=== PATIENT | male | born 1930 | race Caucasian/White ===

== ENCOUNTER → 2016-06-19 | Outpatient (CLI) | payer MEDICARE ==
[~2016-06-19] MED LIST: ACID REDUCER20 MG PO; BENICAR PO; FAMOTIDINE10 MG PO; FLOMAX0.4 M1 PO; HCTZ PO; INDOMETHACIN25 MG PO; INDOMETHACIN50 MG PO; LASIX PO; LISINOPRIL PO; LORTAB 7.5-3251 EACH PO; MULTI VITAMIN1 EACH PO; SAW PALMETTO160 M1 PO; SAW PALMETTO450 MG PO; VICODIN ES 7.51 EAC1 PO; ZESTORETIC 20-1 EAC2 PO
--- NOTE | ~2016-06-19 | US5 ---
[facility] A Service of [facility] RADIOLOGY TEXT RESULTS PATIENT: EDIS AC LOCATION: [facility] : 32 UNIT #: [id number] AGE: [address]: HOLLEY CORTES APRN SEX: M ORDER DR: [id number] [place] [id number] O MR#: [id number] Acc #: [id number] NAME: EDIS CA : 1930 SEX: M STUDY DATE/TIME: 06/19/2016 8:54 UNIT: [facility] ROOM: STUDY DESCRIPTION: US Abdominal Complete Attending Physician: Holley Cortes Aprn Referring Physician: Holley Cortes Aprn Ordering Physician: Holley Cortes Aprn Primary Care Physician: Tigre Vale M.D. MEDICAL IMAGING REPORT This report is preliminary unless electronic signature is present. EXAM Abdominal ultrasound INDICATION Right upper quadrant abdominal pain for the past 3 weeks, with right-sided abdominal swelling for the past week. PROCEDURE Dickerson-scale and Doppler imaging of the abdomen. COMPARISON None. FINDINGS Pancreas obscured by bowel gas and not well seen. Liver measures 16.2 cm. No liver mass on submitted images. Submitted images abdominal aorta and inferior vena cava unremarkable. Common duct is obscured by bowel gas and not well seen. Abnormal appearance of the gallbladder. There are a few stones. There is what appears to be significant gallbladder wall thickening, measuring up to 2.1 cm. The right kidney measures 11.3 cm. No definite hydronephrosis. Spleen measures 11.5 cm. Left kidney measures 12 cm with no hydronephrosis. IMPRESSION 1. Difficult study secondary to body habitus and bowel gas. The pancreas and common duct are not well seen. 2. Abnormal appearance of the gallbladder with what appears to be gallbladder wall thickening with several stones. Cholecystitis is not excluded on this study. Correlate with patient's symptoms. Given the unusual appearance of the gallbladder by ultrasound, evaluation with CT or MRI may be helpful. 3. Findings discussed with Supriya Cortes at the time of this dictation. [facility] A Service of [facility] RADIOLOGY TEXT RESULTS PATIENT: EDIS CA LOCATION: [facility] : 32 UNIT #: [id number] AGE: [address]: HOLLEY CORTES APRN SEX: M ORDER DR: Dictated by... Fritz Jackson M.D. THIS IS AN ELECTRONICALLY VERIFIED REPORT Fritz Jackson M.D. at 06/20/2016 7:08 AM MARCELINO/mary TD: 06/19/2016 13:35 JOB #: [id number] MEDICAL IMAGING REPORT
== END | disposition home or self-care (01) ==
LOC: SGUS 08:05
DX: R10.11 Right upper quadrant pain (principal); R14.0 Abdominal distension (gaseous); R94.8 Abnormal results of function studies of other organs and systems
CPT/HCPCS: 76700

== ENCOUNTER 2016-06-21 13:39 | Inpatient (IN) | payer OTHER ==
--- NOTE | ~2016-06-21 | OR ---
Unit #: [id number] #: [id number] Patient: EDIS [place] [id number] [address] [place], [place] [address] [id number] I MR#: [id number] NAME: EDIS CA ROOM: 242 Date of Procedure: 06/22/2016 Admission Date: 06/21/2016 Surgeon: Arpan Andrews M.D. : 1930 Attending Physician: Richi Cruz M.D. Primary Care Physician: Tigre Vale M.D. OPERATIVE REPORT PRIMARY CARE PHYSICIAN Tigre Vale M.D. PREOPERATIVE DIAGNOSES The patient has presented with cholecystitis, cholelithiasis, and choledocholithiasis with dilated common bile duct. PROCEDURES PERFORMED Endoscopic retrograde cholangiopancreatography and sphincterotomy, endoscopic retrograde cholangiopancreatography and stone extraction, and endoscopic retrograde cholangiopancreatography and biliary and pancreatic stent placements. POSTOPERATIVE DIAGNOSES Multiple filling defects in the distal common bile duct along with stones and debris. After a sphincterotomy, the duct was cleaned off all the stones and debris with a 10 to 12 mm retrieval balloon. The cystic duct could not be opacified on the occlusion cholangiogram. In addition, the patient had a periampullary diverticulum. The stents were placed in both the common bile duct as well as pancreatic duct to ensure continuity of drainage and prevent postprocedure pancreatitis. RECOMMENDATIONS The patient will undergo laparoscopic cholecystectomy tomorrow. He will require an elective removal of biliary stent 6 to 8 weeks time. SEDATION USED MAC. DESCRIPTION OF PROCEDURE Following detailed explanation of potential risks and complications of an ERCP, namely perforation, bleeding, and complications related to sedation, the patient was brought to GI lab and laid in the left semiprone position. A preliminary upper GI endoscopy was performed, which was normal. Lateral-viewing duodenoscope was advanced through the oral cavity into the esophagus and advanced into the stomach. Pylorus was intubated in the usual fashion. Scope was advanced in deep descending duodenum. Upon shortening the scope, major papillary and ampullary area was visualized en face. The patient was noted to have a periampullary diverticulum. Cannulation of the common bile duct led to cannulation of the pancreatic duct on 2 occasions and the guidewire was anchored and guidewire was left in the pancreatic duct. Repeated using the double-wire technique, the Unit #: [id number] #: [id number] Patient: EDIS CA common bile duct cannulation was attempted without success. We then placed a 5-Tongan x 5-cm pancreatic stent and using a needle knife sphincterotomy, the common bile duct was accessed eventually. The guide was then advanced in the common bile duct and cholangiogram was obtained. The patient was noted to have dilated common bile duct about 9 mm. In addition, there were filling defects in the distal CBD. There were also some scarring in this area. An adequate sphincterotomy was then performed. Some debris and stones were delivered by sphincterotomy. The duct was then cleared of any residual stones and debris by using 9 to 12 mm retrieval balloon at 12 mm settings. Multiple passages were made through the common bile duct at least 3 to 4 times and the duct was cleaned of any residual stones. A 10-Tongan x 7 cm biliary stent was then deployed. Incidentally, the cystic duct could not be opacified on an occlusion cholangiogram. The scope was then withdrawn. The patient returned to the recovery area. The patient tolerated the procedure without any postprocedure complications. About now or later after the procedure, the patient was re-examined and was totally asymptomatic and complaining of no upper abdominal pain. Dictated by... Laura Morris/maria ines TD: 06/23/2016 03:05 JOB #: [id number] OPERATIVE REPORT X Arpan Andrews MD X PROCEDURE OPERATIVE NOTE
--- NOTE | ~2016-06-21 | CR84 ---
[facility] A Service of [facility] RADIOLOGY TEXT RESULTS PATIENT: EDIS CA LOCATION: [facility] : 32 UNIT #: [id number] AGE: [address]: Richi Cruz MD SEX: M ORDER DR: [id number] [place] [id number] [facility]. [place], [place] [address] [id number] I MR#: [id number] Acc #: [id number] NAME: EDIS CA : 1930 SEX: M STUDY DATE/TIME: 06/22/2016 12:58 UNIT: [facility] ROOM: 242 STUDY DESCRIPTION: CR ERCP Biliary and Pancr SI Attending Physician: Richi Cruz M.D. Ordering Physician: Arpan Andrews M.D. Primary Care Physician: Tigre Vale M.D. MEDICAL IMAGING REPORT This report is preliminary unless electronic signature is present EXAM ERCP with fluoroscopy. Date: 06/22/2016 at 12:58 HISTORY Possible common bile duct stones. COMPARISON Complete abdominal ultrasound 06/19/2016. CT abdomen with contrast 06/21/2016. FINDINGS 10 spot fluoroscopic images were obtained during ERCP procedure performed by Dr. Andrews. Fluoroscopy time 3.18 minutes was documented. Contrast was injected into the common bile duct. A filling defect is seen within the distal CBD at or above the level of the ampulla consistent with retained stone, as was suspected on the recent 06/21/2016 CT. Sphincterotomy was performed. Balloon sweep was performed for stone extraction. Mild upstream common bile duct dilation is noted. Final procedure image demonstrates CBD stent and presumed pancreatic stent in satisfactory position. No imaging of opacified pancreatic duct. Please correlate with real-time procedure findings. Dictated by... Wanda Callahan M.D. THIS IS AN ELECTRONICALLY VERIFIED REPORT Wanda Callahan M.D. at 06/24/2016 7:02 PM [facility] A Service of [facility] RADIOLOGY TEXT RESULTS PATIENT: EDIS CA LOCATION: [facility] : 32 UNIT #: [id number] AGE: [address]: Richi Cruz MD SEX: M ORDER DR: ODESSA/jerilyn TD: 06/22/2016 23:45 JOB #: [id number] MEDICAL IMAGING REPORT COPY
--- NOTE | ~2016-06-21 | CO ---
Unit #: [id number] #: [id number] Patient: EDIS MARIEE [id number] [address] [address] [id number] I MR#: [id number] NAME: EDIS MARIEE ROOM: 242 Age: 86 Sex: M Admission Date: 06/21/2016 : 1930 Attending Physician: Richi Cruz M.D. Primary Care Physician: Tigre Vale M.D. Consultation Date: 06/21/2016 CONSULTATION REPORT REASON FOR CONSULTATION 1. Right upper quadrant pain. 2. Cholelithiasis. 3. Cholecystitis. CONSULTING PHYSICIAN [facility] physicians. HISTORY OF PRESENT ILLNESS Thank you very much for asking us to see Mr. Mariee. He is an 86-year-old white male whose past medical history is remarkable for hypertension. He has had a four to five week history of right upper quadrant pain. It is a deep pressure sensation that radiates to the back. It is intermittent. It is worse when he takes a deep breath. He was sent for an ultrasound of the gallbladder as an outpatient on June 11, 2016 and at that time, was found to have some mild gallbladder wall thickening and multiple gallstones. A CT scan was recommended for further evaluation. He had this today as an outpatient. He was found to have cholelithiasis, some gallbladder wall thickening, a hydrops of the gallbladder, as well as, a possible distal common bile duct stone. There were also a few air bubbles present within the gallbladder suspicious for emphysematous cholecystitis. He is not complaining of any significant abdominal pain or change in his examination. He states his urine may be slightly darker but nothing very obvious. He denies any GI bleeding. No or pulmonary symptoms. His weight has been stable and appetite overall has been good. He came to the emergency room per the radiologist at recommendation. He presents at this time for further evaluation and treatment. ALLERGIES Tetracyclines. MEDICATIONS 1. Lisinopril. 2. Hydrochlorothiazide. 3. Indomethacin as needed. 4. Saw palmetto. 5. Lasix. 6. Benicar. PAST SURGICAL HISTORY Arthroscopic surgery of his left knee. PAST MEDICAL HISTORY Unit #: [id number] #: [id number] Patient: EDIS MARIEE Hypertension. SOCIAL HISTORY No tobacco or alcohol use. REVIEW OF SYSTEMS Negative except for above. IMMUNIZATION Immunization status unknown. FAMILY HISTORY Noncontributory. PHYSICAL EXAMINATION GENERAL: Well-developed, well-nourished white male in no apparent distress. Awake, alert, and oriented x3. VITAL SIGNS: Temperature 97.9, pulse 102, respirations 18, blood pressure 144/67. NECK: Supple. No thyromegaly or adenopathy. HEENT: Sclerae nonicteric. Extraocular movements are intact. BACK: No CVA or spinous tenderness. ABDOMEN: Flat, soft. Lexd-zw-zhrrokqc tenderness in the right upper quadrant but no rebound, peritoneal signs, or masses. DIAGNOSTIC STUDIES LABORATORY: Laboratory studies reveal the patient to have a PT, PTT that is normal. CMP shows a glucose of 122, a total bilirubin of 2.5, direct bilirubin 1.2, indirect 1.3, AST 99, ALT 126, alkaline phosphatase 484. Amylase 23, lipase 20. His white count is 17.1 with hemoglobin 13.5, MCV 83.7, platelet count 312,000. Urinalysis shows negative nitrite, negative leukocyte esterase. IMPRESSION An 86-year-old white male with cholelithiasis, most likely cholecystitis and with very possible common bile duct stone. We have explained to the patient as well as to his son and daughter the above findings. We recommend IV fluids, IV antibiotics, and evaluation by GI medicine for possible endoscopic retrograde cholangiopancreatography. After his common bile duct is cleared, then he would need laparoscopic cholecystectomy. All the imaging and laboratory studies have been fully explained to the patient and the family in detail. They understand and request to proceed with the current treatment plan. All this also discussed with Dr. Andrews of GI medicine per telephone. He will see the patient today. Dictated by... Laura Malik TD: 06/22/2016 14:25 JOB #: [id number] CC: [facility] Unit #: [id number] #: [id number] Patient: EDIS MARIEE CONSULTATION REPORT X Richi Cruz MD X CONSULTATION REPORT
--- NOTE | ~2016-06-21 | CO ---
Unit #: [id number] #: [id number] Patient: EDIS [place] [id number] [facility]. [address] [place], [place] [address] [id number] I MR#: [id number] NAME: EDIS CA ROOM: 242 Age: 86 Sex: M Admission Date: 06/21/2016 : 1930 Attending Physician: Richi Cruz M.D. Primary Care Physician: Tigre Vale M.D. Consultation Date: 06/21/2016 CONSULTATION REPORT ATTENDING PHYSICIAN Katelynn Mandujano APRN. REASON FOR CONSULTATION Possible choledocholithiasis in a patient with acute cholecystitis. HISTORY OF PRESENT ILLNESS Mr. Genao is a very pleasant 86-year-old white gentleman. The patient has been totally asymptomatic until about a month ago. About 3 to 4 weeks ago, he noticed pain in the right upper quadrant of the abdomen. This was insidious in onset and more or less continuous. Pain would increase on postural changes and was felt deep inside below the right rib cage. There was no radiation of the pain to the scapular area and nor to the right shoulder. The patient denies any history of fever, chills, or rigors. His appetite was initially poor, but it subsequently picked up and he is having normal appetite now. He has no nausea or vomiting and no chills or rigors. PAST MEDICAL HISTORY The patient has had no significant past medical history and has had no prior abdominal surgeries. He says recently he has had significant edema of the lower extremities and has been started on hydrochlorothiazide and lisinopril combination by Dr. Vale as an outpatient. MEDICATIONS Include hydrochlorothiazide and lisinopril. PAST SURGICAL HISTORY He has no previous surgeries. ALLERGIES He has no known drug allergies. SOCIAL HISTORY Does not smoke or drink alcohol. Lives at home with his . FAMILY HISTORY None of colon, pancreatic cancer, or liver disease. REVIEW OF SYSTEMS Detailed review of organ systems does not reveal any recent significant weight loss. No history of fever, chills, or rigors. No history of headache, seizures, chest pain, or syncope. No history of cough, Unit #: [id number] #: [id number] Patient: EDIS CA expectoration, or hemoptysis. No history of dysuria, hematuria, or pyuria. No history of focal seizures or extremity weakness. No history of skin rash, aphthous ulcer in the mouth, or reactive arthritis. Rest of the review of organ system is unremarkable. PHYSICAL EXAMINATION GENERAL: He is alert and oriented, and appears comfortable. VITAL SIGNS: Stable with a temperature of 98.5, pulse is 73 per minute and regular, respiratory rate is 17, blood pressure 111/56. He weighs 203 pounds, and appears well nourished. HEENT: He has no pallor, icterus, lymphadenopathy, or peripheral edema. CARDIOVASCULAR: Normal heart sounds. No murmurs on auscultation. LUNGS: Reveal normal breath sounds. Good air entry. ABDOMEN: Soft. There being localized tenderness of the right upper quadrant. Avila sign is positive. No rigidity, rebound, or guarding is felt. Liver and spleen are not palpable. Bowel sounds normal and the patient's hernia sites also. DIAGNOSTIC STUDIES LABORATORY RESULTS: Shows leukocytosis with white count of 17,000 with left shift. Serum chemistry shows mildly elevated bilirubin of 2.5, albumin is 2.9. AST and ALT are 99 and 126 respectively and alkaline phosphatase is 484. Amylase and lipase are normal. IMAGING STUDIES: The patient's CT scan of the abdomen shows a hydrops of the gallbladder along with debris and stones in the gallbladder. In addition, there was some air indicating possible infection with air-forming bacteria. Lastly, the patient seems to have distal common bile duct stone or debris. CLINICAL IMPRESSION The patient with cholelithiasis, cholecystitis, and choledocholithiasis. MANAGEMENT PLAN Includes clearance of the common bile duct followed by laparoscopic cholecystectomy. An endoscopic retrograde cholangiopancreatography is being scheduled for tomorrow. The pros and cons of the procedure, and potential risks and complications including possibility of perforation, bleeding, and complications related to sedation, as well as pancreatitis were discussed with the patient, his and his son, who were at the bedside. They seemed reassured. Thank you for asking me to see this pleasant gentleman. I appreciate the consult. Dictated byLaura Daley/maria ines TD: 06/22/2016 13:57 JOB #: [id number] Unit #: [id number] #: [id number] Patient: EDIS CA CONSULTATION REPORT X Arpan Andrews MD CONSULTATION REPORT
--- NOTE | ~2016-06-21 | DS ---
Unit #: [id number] #: [id number] Patient: EDIS [place] [id number] [address] [address] [id number] I MR#: [id number] NAME: EDIS CA ROOM: 242 Age: 86 Sex: M Admission Date: 06/21/2016 : 1930 Discharge Date: 06/27/2016 Attending Physician: Richi Cruz M.D. Primary Care Physician: Tigre Vale M.D. DISCHARGE SUMMARY DISCHARGE DIAGNOSES 1. Acute cholecystitis with abdominal adhesions. 2. Postoperative urinary retention. 3. Atherosclerotic cardiovascular disease, mild. OPERATIVE PROCEDURES 1. ERCP. 2. Open cholecystectomy with lysis of adhesions, drainage of right upper quadrant. HISTORY OF PRESENT ILLNESS AND HOSPITAL COURSE An 86-year-old white male with no previous abdominal operations who had mid epigastric/right upper quadrant abdominal pain, CT scan showing stones, hydrops, wall thickening of the gallbladder with a few gas bubbles, possible common bile duct stone. Patient was admitted, placed on antibiotics. ERCP was performed per Dr. Andrews. The stent was placed. ERCP did not show any large stones in the duct. The patient was taken to surgery. Open cholecystectomy was performed. Dense adhesiolysis was also performed. Postoperative course was complicated by a mild ileus plus problems related to some urinary retention and decreased urinary output. The patient's IV fluids were increased. Urology was consulted. Tentatively urinary flow came back to clinical normal limits with serum creatinine rising to 1.5. Patient clinically is stable. His drain has been removed. He will be (1) discharged if okay with Urology. FOLLOWUP We will see the patient back for followup in the clinic in 7 to 10 days. Dictated by... Laura Suarez/shruti TD: 06/27/2016 23:15 JOB #: [id number] Unit #: [id number] #: [id number] Patient: EDIS CA DISCHARGE SUMMARY X Caesar Pak MD X DISCHARGE SUMMARY
--- NOTE | ~2016-06-21 | CO ---
Unit #: [id number] #: [id number] Patient: EDIS CA [id number] [address] [place], [place] [address] [id number] I MR#: [id number] NAME: EDIS CA ROOM: 242 Age: 86 Sex: M Admission Date: 06/21/2016 : 1930 Attending Physician: Richi Cruz M.D. Primary Care Physician: Tigre Vale M.D. Consultation Date: 06/27/2016 CONSULTATION REPORT REASON FOR CONSULTATION Elevated postoperative renal indices and dysuria. HISTORY OF PRESENT ILLNESS This 86-year-old man is seen 4 days post cholecystectomy and in a delayed fashion as consult was noted to be called over one day prior. He has sought ready for discharge from a surgical viewpoint, but has had voiding difficulties described as dysuria, but in fact he has constant urinary incontinence with small frequent urinations. He denies bladder pain, but has a marked increase in his creatinine to 3.3. 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 He has followed with Dr. Obando for this as well as for a history of elevated PSA, although his PSA was stable and somewhat improved most recently at 7.3. Of note is that while Doshi catheter has not been replaced, a bladder scan showed a residual of over 900 mL after the patient had voided only 100 mL. PAST MEDICAL HISTORY Acute cholecystitis in recovery, hypertension, BPH. PAST SURGICAL HISTORY Open cholecystectomy, left knee arthroscopy. MEDICATIONS ON ADMISSION Lisinopril, hydrochlorothiazide, indomethacin, saw palmetto, Lasix, Benicar. He has had Levaquin, morphine, Roxicodone, Protonix, and Phenergan during his hospitalization. ALLERGIES Tetracycline. FAMILY HISTORY Noncontributory. SOCIAL HISTORY Nonsmoker. REVIEW OF SYSTEMS Pertinent for the above and he ordinarily denies significant voiding complaints and certainly has no incontinence. PHYSICAL EXAMINATION Unit #: [id number] #: [id number] Patient: EDIS CA GENERAL: On examination, he is awake, alert, comfortable. Incisions dry. ABDOMEN: Soft. Bladder palpably distended, although surprisingly not tender. GENITALIA: Normal penis and testicles. I placed a Doshi catheter and his residual was 1650 mL of clear urine. DIAGNOSTIC STUDIES LABORATORY RESULTS: BUN 34, creatinine 3.3. At the time of this dictation, his creatinine overnight has decreased to 0.4 and his potassium is stable at 3.8. IMAGING STUDIES: Note, prior CT scan, bilateral renal atrophy. No hydronephrosis, stones, or upper tract obstruction. IMPRESSION 1. Postoperative urinary retention multifactorial including chronic benign prostatic hypertrophy and should resolve with appropriate bladder rest and therapy. 2. History of untoward effects from prostate medication, but he has tolerated a single dose of tamsulosin overnight. 3. History of elevated prostate-specific antigen for which he follows with Dr. Obando. PLAN We will discharge home with Doshi catheter over the weekend and on tamsulosin recommending a single dose antibiotic with catheter removal. We will see if he can see Dr. Obando on Saturday or Saturday, but if not practical, he will see me on Saturday. Thank you Dr. Stoddard for the consultation. Dictated by... Edis Herr M.D. GEOFF/maria ines TD: 06/29/2016 00:01 JOB #: [id number] CONSULTATION REPORT X Edis Herr MD X CONSULTATION REPORT
--- NOTE | ~2016-06-21 | DS ---
Unit #: [id number] #: [id number] Patient: EDIS MARIEE [id number] [address] [address] [id number] I MR#: [id number] NAME: EDIS MARIEE ROOM: 242 Age: 86 Sex: M Admission Date: 06/21/2016 : 1930 Discharge Date: 06/28/2016 Attending Physician: Richi Cruz M.D. Primary Care Physician: Tigre Vale M.D. DISCHARGE SUMMARY ADDENDUM Mr. Mariee was seen by urology. He was noted to have his serum creatinine elevated from 1.5 to 3.3. Doshi catheter was inserted, and 2,000 mL bladder residual was noted. The patient was then cleared by urology to go home with a Doshi bag and also to have a prescription for Flomax. The patient will be seen by urology in the office and also by us to remove tayo. Dictated by... Laura Suarez/cinthya TD: 06/28/2016 07:58 JOB #: [id number] DISCHARGE SUMMARY X Caesar Pak MD X DISCHARGE SUMMARY
--- NOTE | ~2016-06-21 | OR ---
Unit #: [id number] #: [id number] Patient: EDIS CA [id number] [address] [place], [place] [address] [id number] Lorena MR#: [id number] NAME: EDIS CA ROOM: 242 Date of Procedure: 06/23/2016 Admission Date: 06/21/2016 Surgeon: Darius Sandoval M.D. : 1930 Attending Physician: Richi Cruz M.D. Primary Care Physician: Tigre Vale M.D. OPERATIVE REPORT PREOPERATIVE DIAGNOSIS Acute cholecystitis. POSTOPERATIVE DIAGNOSES Gangrenous cholecystitis with dense intraperitoneal adhesions. PROCEDURE PERFORMED Laparoscopic converted to open cholecystectomy with massive adhesiolysis. ANESTHESIA General endotracheal. COMPLICATIONS None. ESTIMATED BLOOD LOSS 400 mL. DESCRIPTION OF PROCEDURE After the patient was prepped and draped in usual fashion, 1 cm infraumbilical incision was made. A Veress needle was passed. The peritoneal cavity was insufflated in usual fashion. A 5-mm port was placed. Under direct vision, an upper midline 11-mm port and two right upper quadrant 5-mm ports were placed. The gallbladder could not be visualized. There was densely adhesed omentum to the edge of the right lobe of the liver. I was able to bluntly dissect enough to see a small portion of the dome of the gallbladder. The adhesions would not stripped down bluntly. They were quite densely adhesed. I could not grasp the gallbladder. It was tensely distended. A needle was placed through one of the right upper quadrant trocar site. About 5 mL of what appeared to be purulent bile was aspirated from the lumen. I cannot retrieve any further bile. I was able to grasp the dome, but with multiple attempts, I was not able to get the omentum to separate from the gallbladder itself from the edge of lobe of the liver. At one point, I did make an enterotomy in the gallbladder with the blunt dissection, some purulent bile was spilled. At this point, I decided I cannot complete this operation laparoscopically. The ports were removed, and after instruments were brought forth and accounted, a right subcostal incision was made incorporating the upper midline trocar site as well as the medial 5 mm trocar site as well. The incision was extended laterally and inferiorly to the lateral 5 mm trocar site. The peritoneal cavity was opened to approximate the skin incision with electrocautery. Retractors were Unit #: [id number] #: [id number] Patient: EDIS CA. There were very dense adhesions. Using electrocautery, I removed the adhesions from the right lobe of the liver. An adhesions of the omentum which was very hard and fibrotic were slowly removed from the gallbladder itself, some of this was able to be done bluntly, some of it with electrocautery. The area where the enterotomy was made laparoscopically. There was essentially necrotic gallbladder tissue protruding through this, which appeared to be wet gangrene. Dissection was sequentially taken down to the infundibulum removing all of the omentum. This was meticulous in slow dissection. With this, the peritoneum was incised at the edge of the dome of the gallbladder in the right lobe of the liver. At the edge, the gallbladder was taken off the bed with some electrocautery dissection, but mostly with blunt dissection. It should be noted that as the infundibulum was approached, the antrum was adhesed up to the gallbladder wall. These had to be with electrocautery. There was deserosalization, which occurred which was about 7 to 8 mm. This was closed with 2 interrupted sutures of 2-0 silk stick ties. The lower infundibulum tissue was dissected with right angles. There was some tissue anterior to where I find the duct was. It did palpate to be a little bit tubular about 2 to 3 mm. I did clip this doubly proximally, singly distally, and divided it, but there was no tubular structure within this after was divided. It was believed there was just fibrotic tissue coming from posterior. The cystic artery was dissected. This was clipped doubly proximally, singly distally, and divided. I was able to dissect down to the cystic duct; however, it was encased in fairly fibrotic tissue. The area in question was too large for the clip cook fish eggs. With this, a TA 30 was brought forth. The cystic duct was stapled and then divided sharply distally. The cystic duct was identified within this structure that was about 4 to 5 mm in diameter. The specimen was delivered and sent to Pathology. There had been quite a bit of oozing from the bed during the procedure by the time of the gallbladder was out. This had pretty much stopped from a lap pads, which were placed to hold pressure. The peritoneal cavity was irrigated with 2 L of saline and suctioned free. A drain was placed through a separate stab incision down the bed of the gallbladder and into the right gutter and secured to the skin with a silk ligature. Posterior fascia was closed with running 0 Vicryl. Anterior fascia was closed with a running #1 looped 0 PDS. Skin closed with clips at all sites. Dressings applied. The patient was taken to the recovery room in good condition. Dictated by... Laura Jay/maria ines TD: 06/23/2016 21:49 JOB #: [id number] OPERATIVE REPORT X Darius Sandoval X PROCEDURE OPERATIVE NOTE
--- NOTE | ~2016-06-21 | EKG ---
PATIENT: EDIS CA UNIT #: [id number] Ventricular Rate: 95 BPM Atrial Rate: 69 BPM QRS Duration: 130 ms Q-T Interval: 378 ms QTC Calculation(Bezet): 475 ms Calculated R Creswell: -77 degrees Calculated T Creswell: 44 degrees Diagnosis Line: Cannot rule out Atrial fibrillation Diagnosis Line: Right bundle branch block Diagnosis Line: Left anterior fascicular block Diagnosis Line: Bifascicular block Diagnosis Line: Abnormal ECG Diagnosis Line: No previous ECGs available Diagnosis Line: Confirmed by MANJULA HERNANDEZ MD ([id number]) on 06/21/2016 Diagnosis Line: 6:27:44 PM INTERPRETING MD: DAVID WALTERS
[2016-06-21 13:21] LABS: BASOPHIL# 0.1 X10e3 (0-0.3); BASOPHIL% 0.9 % (0-2.5); DIFF IND YES; EOSINOPHIL% 0.2 % (0.0-7.0); HEMATOCRIT 40.2 % (38.0-50.0); HEMOGLOBIN 13.5 gm/dL (13.0-16.0); LYMPHOCYTE# 1.8 X10e3 (1.0-3.5); LYMPHOCYTE% 10.4 % (17.0-45.0); MEAN CELL VOLUME 83.7 FL (83-96); MEAN CORPUSCULAR HGB CONC 33.4 g/dL (30-36); MEAN PLATELET VOLUME 10.5 FL (6.5-11.5); MONOCYTE# 1.8 X10e3 (0-1.0); MONOCYTE% 10.6 % (3.0-12.0); NEUTROPHIL# 13.3 X10e3 (1.5-7.1); NEUTROPHIL% 77.9 % (40-75); PLATELET COUNT 312 X10e3 (140-420); RED BLOOD COUNT 4.81 X10e (3.90-5.60); RED CELL DISTRIBUTION WIDTH 14.6 % (11.0-15.5); WHITE BLOOD COUNT 17.1 X10e3 (4.0-10.5)
[2016-06-21 13:32] LABS: PARTIAL THROMBOPLASTIN TIME 27.3 SECONDS (23.5-31.3); PROTHROMBIN TIME (PATIENT) 10.6 SECONDS (9.6-11.5)
[2016-06-21 13:34] LABS: PLATELET ESTIMATE NORMAL (NORMAL)
[~2016-06-21 13:39] MED LIST changes: -ACID REDUCER20 MG PO; -FAMOTIDINE10 MG PO; -FLOMAX0.4 M1 PO; -INDOMETHACIN25 MG PO; -INDOMETHACIN50 MG PO; -LISINOPRIL PO; -LORTAB 7.5-3251 EACH PO; -MULTI VITAMIN1 EACH PO; -SAW PALMETTO160 M1 PO; -SAW PALMETTO450 MG PO; -VICODIN ES 7.51 EAC1 PO; -ZESTORETIC 20-1 EAC2 PO
[2016-06-21 13:51] LABS: ALBUMIN SERUM 2.9 g/dL (3.5-5.0); ALKALINE PHOSPHATASE 484 U/L (32-92); ALT (SGPT) 126 U/L (10-40); AMYLASE 23 U/L (0-46); AST (SGOT) 99 U/L (10-42); BILIRUBIN, DIRECT 1.2 mg/dL (0.0-0.2); BILIRUBIN,INDIRECT 1.3 mg/dL (0.0-0.9); BILIRUBIN,TOTAL 2.5 mg/dL (0.2-2.0); BLOOD UREA NITROGEN 19 mg/dL (9-23); BUN/CREATININE RATIO 17.27; CALCIUM SERUM 9.6 mg/dL (8.4-10.2); CARBON DIOXIDE 27 mmol/L (22-31); CHLORIDE 98 mmol/L (100-111); CREATININE SERUM 1.1 mg/dL (0.6-1.4); GLOM FILT RATE Estimated ABOVE60 mL/min (>60); GLUCOSE FASTING 122 mg/dL (70-110); LIPASE 20 U/L (22-51); POTASSIUM 3.9 mmol/L (3.5-5.1); PROTEIN TOTAL SERUM 7.1 g/dL (6.0-8.3); SODIUM 137 mmol/L (135-145)
[2016-06-21 14:34] LABS: URINE SOURCE CLEAN CATCH
[2016-06-21 14:40] LABS: URINE APPEARANCE CLEAR; URINE BLOOD NEG (NEG); URINE COLOR DK YELLOW; URINE GLUCOSE NEG (NEG); URINE KETONE NEG (NEG); URINE LEUKOCYTE ESTERASE NEG (NEG); URINE NITRATE NEG (NEG); URINE PH 5.5 (5-8); URINE PROTEIN NEG (NEG); URINE SPECIFIC GRAVITY 1.066 (1.003-1.035)
[2016-06-21 14:51] LABS: URINE BILIRUBIN NEG (NEG)
[2016-06-21 14:54] LABS: CULTURE INDICATED? NO
[2016-06-21] MEDS ORDERED: SAW PALMETTO160 M1 PO (18:15)
[2016-06-21] MEDS ORDERED: LISINOPRIL PO (18:15)
[2016-06-21] MEDS ORDERED: MULTI VITAMIN1 EACH PO (18:15)
[2016-06-21] MEDS ORDERED: FAMOTIDINE10 MG PO (18:15)
[2016-06-21] MEDS ORDERED: INDOMETHACIN25 MG PO (18:16)
[2016-06-22 05:17] LABS: BASOPHIL# 0.1 X10e3 (0-0.3); BASOPHIL% 0.5 % (0-2.5); EOSINOPHIL# 0.1 X10e3 (0-0.7); EOSINOPHIL% 0.6 % (0.0-7.0); HEMATOCRIT 35.2 % (38.0-50.0); HEMOGLOBIN 11.6 gm/dL (13.0-16.0); LYMPHOCYTE# 1.4 X10e3 (1.0-3.5); MEAN CELL VOLUME 83.7 FL (83-96); MEAN CORPUSCULAR HEMOGLOBIN 27.5 PG (28-34); MEAN CORPUSCULAR HGB CONC 32.9 g/dL (30-36); MEAN PLATELET VOLUME 10.6 FL (6.5-11.5); MONOCYTE# 1.5 X10e3 (0-1.0); MONOCYTE% 13.1 % (3.0-12.0); NEUTROPHIL# 8.3 X10e3 (1.5-7.1); NEUTROPHIL% 73.8 % (40-75); PLATELET COUNT 197 X10e3 (140-420); RED BLOOD COUNT 4.21 X10e (3.90-5.60); RED CELL DISTRIBUTION WIDTH 14.5 % (11.0-15.5); WHITE BLOOD COUNT 11.3 X10e3 (4.0-10.5)
[2016-06-22 05:24] LABS: DIFF IND NO
[2016-06-22 05:59] LABS: ALBUMIN SERUM 2.2 g/dL (3.5-5.0); ALKALINE PHOSPHATASE 330 U/L (32-92); ALT (SGPT) 90 U/L (10-40); AMYLASE 21 U/L (0-46); AST (SGOT) 71 U/L (10-42); BILIRUBIN, DIRECT 1.4 mg/dL (0.0-0.2); BILIRUBIN,TOTAL 2.8 mg/dL (0.2-2.0); BLOOD UREA NITROGEN 15 mg/dL (9-23); CALCIUM SERUM 8.8 mg/dL (8.4-10.2); CARBON DIOXIDE 27 mmol/L (22-31); CHLORIDE 104 mmol/L (100-111); GLOM FILT RATE Estimated ABOVE60 mL/min (>60); GLUCOSE FASTING 106 mg/dL (70-110); LIPASE 18 U/L (22-51); POTASSIUM 3.9 mmol/L (3.5-5.1); PROTEIN TOTAL SERUM 5.3 g/dL (6.0-8.3); SODIUM 138 mmol/L (135-145)
[2016-06-22 06:28] LABS: PROTHROMBIN TIME (PATIENT) 10.8 SECONDS (9.6-11.5)
[2016-06-23 05:41] LABS: HEMATOCRIT 35.7 % (38.0-50.0); HEMOGLOBIN 11.6 gm/dL (13.0-16.0); MEAN CELL VOLUME 84.3 FL (83-96); MEAN CORPUSCULAR HEMOGLOBIN 27.5 PG (28-34); MEAN CORPUSCULAR HGB CONC 32.6 g/dL (30-36); MEAN PLATELET VOLUME 10.1 FL (6.5-11.5); RED BLOOD COUNT 4.23 X10e (3.90-5.60); RED CELL DISTRIBUTION WIDTH 14.9 % (11.0-15.5); WHITE BLOOD COUNT 8.5 X10e3 (4.0-10.5)
[2016-06-23 07:00] LABS: ALBUMIN SERUM 2.2 g/dL (3.5-5.0); ALKALINE PHOSPHATASE 316 U/L (32-92); ALT (SGPT) 77 U/L (10-40); AMYLASE 28 U/L (0-46); AST (SGOT) 47 U/L (10-42); BILIRUBIN,TOTAL 1.9 mg/dL (0.2-2.0); BLOOD UREA NITROGEN 13 mg/dL (9-23); BUN/CREATININE RATIO 16.25; CALCIUM SERUM 9.1 mg/dL (8.4-10.2); CARBON DIOXIDE 24 mmol/L (22-31); CHLORIDE 108 mmol/L (100-111); CREATININE SERUM 0.8 mg/dL (0.6-1.4); GLOM FILT RATE Estimated ABOVE60 mL/min (>60); GLUCOSE FASTING 103 mg/dL (70-110); LIPASE 18 U/L (22-51); POTASSIUM 3.9 mmol/L (3.5-5.1); PROTEIN TOTAL SERUM 5.4 g/dL (6.0-8.3); SODIUM 141 mmol/L (135-145)
[2016-06-24 05:27] LABS: HEMATOCRIT 33.4 % (38.0-50.0); HEMOGLOBIN 10.9 gm/dL (13.0-16.0); MEAN CELL VOLUME 85.2 FL (83-96); MEAN CORPUSCULAR HEMOGLOBIN 27.9 PG (28-34); MEAN CORPUSCULAR HGB CONC 32.7 g/dL (30-36); RED BLOOD COUNT 3.93 X10e (3.90-5.60); RED CELL DISTRIBUTION WIDTH 14.8 % (11.0-15.5); WHITE BLOOD COUNT 15.9 X10e3 (4.0-10.5)
[2016-06-24 06:32] LABS: BILIRUBIN,TOTAL 1.7 mg/dL (0.2-2.0); BUN/CREATININE RATIO 12.85; CALCIUM SERUM 8.9 mg/dL (8.4-10.2); CREATININE SERUM 1.4 mg/dL (0.6-1.4); GLOM FILT RATE Estimated 51.3 mL/min (>60); POTASSIUM 4.5 mmol/L (3.5-5.1); PROTEIN TOTAL SERUM 5.3 g/dL (6.0-8.3)
[2016-06-24 12:36] LABS: HEMATOCRIT 33.5 % (38.0-50.0); HEMOGLOBIN 10.8 gm/dL (13.0-16.0); MEAN CELL VOLUME 85.6 FL (83-96); MEAN CORPUSCULAR HEMOGLOBIN 27.7 PG (28-34); MEAN CORPUSCULAR HGB CONC 32.4 g/dL (30-36); RED BLOOD COUNT 3.92 X10e (3.90-5.60); RED CELL DISTRIBUTION WIDTH 14.7 % (11.0-15.5); WHITE BLOOD COUNT 15.6 X10e3 (4.0-10.5)
[2016-06-25 06:48] LABS: HEMOGLOBIN 9.7 gm/dL (13.0-16.0); MEAN CELL VOLUME 85.2 FL (83-96); MEAN CORPUSCULAR HEMOGLOBIN 27.6 PG (28-34); MEAN CORPUSCULAR HGB CONC 32.3 g/dL (30-36); MEAN PLATELET VOLUME 10.2 FL (6.5-11.5); RED BLOOD COUNT 3.52 X10e (3.90-5.60); RED CELL DISTRIBUTION WIDTH 14.6 % (11.0-15.5); WHITE BLOOD COUNT 13.2 X10e3 (4.0-10.5)
[2016-06-25 07:22] LABS: BUN/CREATININE RATIO 12.66; CALCIUM SERUM 8.8 mg/dL (8.4-10.2); CREATININE SERUM 1.5 mg/dL (0.6-1.4); GLOM FILT RATE Estimated 47.4 mL/min (>60); POTASSIUM 4.6 mmol/L (3.5-5.1)
[2016-06-26 06:41] LABS: BASOPHIL% 0.4 % (0-2.5); EOSINOPHIL# 0.2 X10e3 (0-0.7); EOSINOPHIL% 1.7 % (0.0-7.0); HEMATOCRIT 29.3 % (38.0-50.0); HEMOGLOBIN 9.7 gm/dL (13.0-16.0); LYMPHOCYTE# 1.3 X10e3 (1.0-3.5); LYMPHOCYTE% 13.3 % (17.0-45.0); MEAN CELL VOLUME 84.8 FL (83-96); MEAN PLATELET VOLUME 10.1 FL (6.5-11.5); MONOCYTE# 1.1 X10e3 (0-1.0); MONOCYTE% 11.1 % (3.0-12.0); NEUTROPHIL# 7.3 X10e3 (1.5-7.1); NEUTROPHIL% 73.5 % (40-75); PLATELET COUNT 197 X10e3 (140-420); RED BLOOD COUNT 3.45 X10e (3.90-5.60); RED CELL DISTRIBUTION WIDTH 14.7 % (11.0-15.5); WHITE BLOOD COUNT 9.9 X10e3 (4.0-10.5)
[2016-06-26 06:42] LABS: DIFF IND NO
[2016-06-26 06:57] LABS: ALBUMIN SERUM 1.6 g/dL (3.5-5.0); BILIRUBIN,TOTAL 1.1 mg/dL (0.2-2.0); BUN/CREATININE RATIO 10.76; CALCIUM SERUM 8.5 mg/dL (8.4-10.2); CREATININE SERUM 2.6 mg/dL (0.6-1.4); GLOM FILT RATE Estimated 25.1 mL/min (>60); POTASSIUM 4.9 mmol/L (3.5-5.1); PROTEIN TOTAL SERUM 4.2 g/dL (6.0-8.3)
[2016-06-26 07:33] LABS: URINE APPEARANCE CLEAR; URINE BILIRUBIN NEG (NEG); URINE BLOOD NEG (NEG); URINE COLOR YELLOW; URINE GLUCOSE NEG (NEG); URINE KETONE NEG (NEG); URINE LEUKOCYTE ESTERASE NEG (NEG); URINE NITRATE NEG (NEG); URINE PROTEIN NEG (NEG); URINE SPECIFIC GRAVITY 1.011 (1.003-1.035); URINE UROBILINOGEN 0.2 MG/DL (NEG)
[2016-06-27 09:28] LABS: BUN/CREATININE RATIO 10.3; CALCIUM SERUM 8.9 mg/dL (8.4-10.2); CREATININE SERUM 3.3 mg/dL (0.6-1.4); GLOM FILT RATE Estimated 19.1 mL/min (>60); POTASSIUM 4.9 mmol/L (3.5-5.1)
[2016-06-28 06:59] LABS: BLOOD UREA NITROGEN 16 mg/dL (9-23); CALCIUM SERUM 8.5 mg/dL (8.4-10.2); CARBON DIOXIDE 38 mmol/L (22-31); CHLORIDE 92 mmol/L (100-111); CREATININE SERUM 0.4 mg/dL (0.6-1.4); GLOM FILT RATE Estimated ABOVE60 mL/min (>60); GLUCOSE FASTING 109 mg/dL (70-110); POTASSIUM 3.8 mmol/L (3.5-5.1); SODIUM 135 mmol/L (135-145)
[2016-06-28] MEDS ORDERED: FLOMAX0.4 M1 PO (10:28)
[2016-06-28] MEDS ORDERED: LORTAB 7.5-3251 EACH PO (10:29)
[2016-08-09] MEDS ORDERED: ZESTORETIC 20-1 EAC2 PO (14:19)
[2016-08-09] MEDS ORDERED: FLOMAX0.4 M1 PO (14:19)
[2016-08-09] MEDS ORDERED: INDOMETHACIN50 MG PO (14:20)
[2016-08-09] MEDS ORDERED: SAW PALMETTO450 MG PO (14:21)
[2016-08-09] MEDS ORDERED: MULTI VITAMIN1 EACH PO (14:21)
[2016-08-09] MEDS ORDERED: VICODIN ES 7.51 EAC1 PO (14:23)
[2016-08-09] MEDS ORDERED: ACID REDUCER20 MG PO (14:24)
== END 2016-06-28 12:56 | disposition home or self-care (01) | DRG 415 ==
LOC: CED 13:39 → CEDOF 15:30 → C2A 17:01
PROVIDERS: Internal Medicine Gastroenterology; Student in an Organized Health Care Education/Training Program; Surgery; Urology
PROC: 0FC98ZZ Extirpation of Matter from Common Bile Duct, Via Natural or Artificial Opening Endoscopic (ICD-10-PCS; 2016-06-22 11:56)
PROC: 0F798DZ Dilation of Common Bile Duct with Intraluminal Device, Via Natural or Artificial Opening Endoscopic (ICD-10-PCS; 2016-06-22 11:56)
PROC: 0F7D8DZ Dilation of Pancreatic Duct with Intraluminal Device, Via Natural or Artificial Opening Endoscopic (ICD-10-PCS; 2016-06-22 11:56)
PROC: 0FT40ZZ Resection of Gallbladder, Open Approach (ICD-10-PCS; principal; 2016-06-23 07:30)
PROC: 0FJ44ZZ Inspection of Gallbladder, Percutaneous Endoscopic Approach (ICD-10-PCS; 2016-06-23 07:30)
DX: K80.66 Calculus of gallbladder and bile duct with acute and chronic cholecystitis without obstruction (principal); K91.3 Postprocedural intestinal obstruction; I10 Essential (primary) hypertension; Z90.49 Acquired absence of other specified parts of digestive tract; N40.1 Benign prostatic hyperplasia with lower urinary tract symptoms; R33.8 Other retention of urine; N99.89 Other postprocedural complications and disorders of genitourinary system; Z53.31 Laparoscopic surgical procedure converted to open procedure; K66.0 Peritoneal adhesions (postprocedural) (postinfection); I25.10 Atherosclerotic heart disease of native coronary artery without angina pectoris; Y83.8 Other surgical procedures as the cause of abnormal reaction of the patient, or of later complication, without mention of misadventure at the time of the procedure
CPT/HCPCS: 36415; 74330; 80048; 80053; 80076; 80202; 81003; 82150; 82248; 82947; 83605; 83690; 85025; 85027; 85610; 85730; 87040; 87070; 87075; 87077; 87086; 87186; 87205; 88304; 93005; 94760; 96365; 99285; C9113; J0171; J0330; J0461; J1610; J2270; J2405; J2543; J2710; J3010; J3370

== ENCOUNTER → 2016-06-21 | Outpatient (CLI) | payer MEDICARE ==
--- NOTE | ~2016-06-21 | CT5 ---
[facility] A Service of [facility] RADIOLOGY TEXT RESULTS PATIENT: EDIS CA LOCATION: [facility] : 32 UNIT #: [id number] AGE: [address]: HOLLEY CORTES APRN SEX: M ORDER DR: [id number] [place] [id number] O MR#: [id number] Acc #: [id number] NAME: EDIS CA : 1930 SEX: M STUDY DATE/TIME: 06/21/2016 10:31 UNIT: [facility] ROOM: STUDY DESCRIPTION: CT Abdomen W Cont Attending Physician: Holley Cortes Aprn Referring Physician: Holley Cortes Aprn Ordering Physician: Holley Cortes Aprn Primary Care Physician: Tigre Vale M.D. MEDICAL IMAGING REPORT This report is preliminary unless electronic signature is present. EXAM CT abdomen 06/21 INDICATIONS Persistent right side abdominal pain for 3 1/2 weeks. Abnormal recent gallbladder ultrasound showing a thickened gallbladder. TECHNIQUE Axial images were obtained through the abdomen following oral and IV contrast. Multiplanar reformats were obtained. Comparison made with gallbladder ultrasound performed 06/19/2016. This CT exam was performed with one or more of the following radiation dose reduction techniques: automatic exposure control, adjustment of mA and/or kV according to patient size, and iterative reconstruction. FINDINGS Abdomen: These results have been discussed directly Holley Cortes APRN at the time of this dictation. Emergent surgical consult has been recommended. Lung bases are clear. The gallbladder is hydropic with a short-axis diameter of at least 7.1 cm. It does contain stones. The gallbladder wall is not overly thickened at this time but it does demonstrate abnormal enhancement and adjacent inflammatory fat stranding. The lack of wall thickening may be due to distension. Additionally, findings are suspicious for debris or a stone in the distal common bile duct at the level of the ampulla. There is mild intrahepatic biliary ductal dilatation. No pancreatic ductal dilatation is seen and there is nothing to suggest pancreatitis. There are gas bubbles now noted within the gallbladder concerning for emphysematous cholecystitis. No gas bubbles are seen within the biliary system. There is a cyst in the dome of the liver measuring 2 cm. The kidneys are nonobstructed. There is a mild STS. [facility] A Service of [facility] RADIOLOGY TEXT RESULTS PATIENT: EDIS CA LOCATION: [facility] : 32 UNIT #: [id number] AGE: [address]: HOLLEY CORTES APRN SEX: M ORDER DR: degree of generalized cortical atrophy bilaterally. Solid organs are otherwise unremarkable. The GI tract is normal except for scattered colonic diverticula. There is some atherosclerotic disease, but there is no aortic aneurysm. There is degenerative disease in the spine. There is a 1 cm hypodense lesion in the inferior aspect of the L3 vertebral body. This is probably an hemangioma. This could be evaluated with outpatient MRI of the lumbar spine if the patient is a candidate. Coronary artery disease is present as well. IMPRESSION 1. 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 The gallbladder is hydropic. It contains stones and gas. Additionally, there is debris or a stone at the distal common bile duct at the level of the ampulla. This is resulting in mild intrahepatic biliary ductal dilatation but no pancreatic ductal dilatation. Surgical consult recommended. 2. No other acute findings in the abdomen. 3. Atherosclerotic disease and coronary artery disease. 4. Indeterminate lesion in L3. There may simply be an hemangioma. Non emergent followup with MR lumbar spine recommended if patient is a candidate. 1. 1. Dictated by... Edis Martinez Jr., M.D. THIS IS AN ELECTRONICALLY VERIFIED REPORT Edis Martinez Jr., M.D. at 06/21/2016 11:21 AM AVERY/javier TD: 06/21/2016 11:07 JOB #: [id number] MEDICAL IMAGING REPORT
[2016-06-21 11:32] LABS: POC - CREATININE 1.01 mg/dL (0.64-1.27); POC - GFR >60.0 mL/min (>60)
== END | disposition home or self-care (01) ==
LOC: SCT 08:53
PROVIDERS: Nurse Practitioner Family
DX: R10.11 Right upper quadrant pain (principal); R14.0 Abdominal distension (gaseous); R93.5 Abnormal findings on diagnostic imaging of other abdominal regions, including retroperitoneum; K80.20 Calculus of gallbladder without cholecystitis without obstruction; K83.8 Other specified diseases of biliary tract; I25.10 Atherosclerotic heart disease of native coronary artery without angina pectoris
CPT/HCPCS: 74160; 82565; Q9967

== ENCOUNTER → 2016-08-10 | Day surgery (SDC) | payer OTHER ==
[~2016-08-10] MED LIST changes: +ACID REDUCER20 MG PO; +FAMOTIDINE10 MG PO; +FLOMAX0.4 M1 PO; +INDOMETHACIN25 MG PO; +INDOMETHACIN50 MG PO; +LISINOPRIL PO; +LORTAB 7.5-3251 EACH PO; +MULTI VITAMIN1 EACH PO; +SAW PALMETTO160 M1 PO; +SAW PALMETTO450 MG PO; +VICODIN ES 7.51 EAC1 PO; +ZESTORETIC 20-1 EAC2 PO
--- NOTE | ~2016-08-10 | CR84 ---
[facility] A Service of [facility] RADIOLOGY TEXT RESULTS PATIENT: EDIS CA LOCATION: STAFF NURSE : [birth year] UNIT #: [id number] AGE: [address]: Arpan Andrews MD SEX: M ORDER DR: [id number] [facility] [address] [facility]. [place], [place] [address] [id number] O MR#: [id number] Acc #: [id number] NAME: EDIS CA : 1930 SEX: M STUDY DATE/TIME: 08/10/2016 13:19 UNIT: STAFF NURSE ROOM: STUDY DESCRIPTION: CR ERCP Biliary and Pancr SI Attending Physician: Arpan Andrews M.D. Referring Physician: Arpan Andrews M.D. Ordering Physician: Arpan Andrews M.D. Primary Care Physician: Tigre Vale M.D. MEDICAL IMAGING REPORT This report is preliminary unless electronic signature is present EXAM Intraoperative cholangiogram. HISTORY Stent removal. FLUOROSCOPY TIME 1.1 minutes. FINDINGS 3 intraoperative fluoroscopic spot films were obtained during ERCP procedure performed by the attending endoscopist. Injection of the common bile duct demonstrates intraductal filling defects in the distal common bile duct, suggesting stones or debris. Stone extraction was performed. The central intrahepatic ducts are partly opacified and the extrahepatic ducts are subsequently, partly opacified as well. No stricture is identified. On the final third image, a filling defect is noted in the distal common bile duct, which could be residual debris, stone or air bubble. Pancreatic duct was not injected. IMPRESSION Filling defects in the distal common bile duct on the first image with 1 residual filling defect in the distal common bile duct on the final image, which could be air bubble, debris or stone. No strictures identified. Dictated by... Tayo Garvin M.D. THIS IS AN ELECTRONICALLY VERIFIED REPORT Tayo Garvin M.D. at 08/10/2016 10:30 PM CHARITY/carmelo [facility] A Service of [facility] RADIOLOGY TEXT RESULTS PATIENT: EDIS CA LOCATION: STAFF NURSE : [birth year] UNIT #: [id number] AGE: [address]: Arpan Andrews MD SEX: M ORDER DR: TD: 08/10/2016 19:20 JOB #: [id number] MEDICAL IMAGING REPORT Page 1 of 1 COPY
--- NOTE | ~2016-08-10 | OR ---
Unit #: [id number] #: [id number] Patient: EDIS CA [id number] [address] [place], [place] [address] [id number] O MR#: [id number] NAME: EDIS CA ROOM: Date of Procedure: 08/10/2016 Admission Date: 08/10/2016 Surgeon: Arpan Andrews M.D. : 1930 Attending Physician: Arpan Andrews M.D. Referring Physician: Arpan Andrews M.D. Primary Care Physician: Tigre Vale M.D. OPERATIVE REPORT PREOPERATIVE DIAGNOSES The patient has come for elective biliary stent removal. He has a history of choledocholithiasis and cholecystectomy. PROCEDURES PERFORMED 1. Endoscopic retrograde cholangiopancreatography and stone removal. 2. Endoscopic retrograde cholangiopancreatography and stent removal. POSTOPERATIVE DIAGNOSES 1. Previously placed biliary stent was removed. 2. The patient had multiple filling defects in the cholangiogram and multiple stones were removed from the common bile duct after extending the previous sphincterotomy. Complete clearance of the duct was achieved as demonstrated by normal occlusion cholangiogram. RECOMMENDATIONS The patient will follow up in the office in 3 months' time. SEDATION USED MAC. DESCRIPTION OF PROCEDURE Following detailed explanation of potential risks and complications of an ERCP, namely perforation, bleeding, and complication related to sedation, the patient was brought to GI lab ad laid in the left semiprone position. Sedation using MAC was given. A lateral viewing duodenoscope was advanced through the oral cavity into the esophagus and then into the stomach. Pylorus was intubated in the usual fashion. The scope was advanced in deep descending duodenum. Upon shortening the scope, major papillary and ampullary area was visualized en face. Previously placed biliary stent was seen in normal position. The stent was removed using polypectomy snare and delivered outside. The patient was then reintubated and through the previous sphincterotomy site, a sphincterotome and a guidewire was introduced. Contrast cholangiography showed multiple filling defects in the common bile duct along with some air bubbles. The sphincterotomy site was then extended carefully noticing 2 periampullary diverticula on either side of the ampulla. A 9 to 12 mm retrieval balloon was used and duct was freed multiple times delivering hard pigmented stones as well as yellowish debris in large amount in the duodenum. Complete clearance of the duct was achieved after 3 or 4 passages of the balloon and a normal occlusion cholangiogram was demonstrated. The scope and the accessories were then withdrawn. The patient returned to the recovery area. He tolerated the procedure without any postprocedure complications. Unit #: [id number] #: [id number] Patient: EDIS CA Dictated by... Laura Morris/maria ines TD: 08/11/2016 05:12 JOB #: [id number] Richi Cruz M.D. OPERATIVE REPORT Page 1 of 1 X Arpan Andrews MD X PROCEDURE OPERATIVE NOTE
== END | disposition home or self-care (01) ==
LOC: COPS 11:38
DX: Z48.815 Encounter for surgical aftercare following surgery on the digestive system (principal); K80.50 Calculus of bile duct without cholangitis or cholecystitis without obstruction; I10 Essential (primary) hypertension; K21.9 Gastro-esophageal reflux disease without esophagitis; Z88.8 Allergy status to other drugs, medicaments and biological substances
CPT/HCPCS: 74330